=== PATIENT | male | born 1985 | race Caucasian/White ===

== ENCOUNTER → 2017-02-16 | Outpatient (REF) | payer OTHER ==
[2017-02-16 13:32] LABS: % NORMAL FORMS 5 % (>=4); IMMOTILITY 61 %; NON PROGRESSIVE MOTILITY (c) 12 %; PROGRESSIVE MOTILITY (a) 27 % (>=32); TOTAL MOTILITY 39 % (>=40)
[2017-02-16 13:33] LABS: SPERM ABNORMAL FORMS WBC'S NOTED; SPERM# 45.4 M/Ejac (>=39); TOTAL FUNCTIONAL 1.5 M/Ejac.; TOTAL PROGRESSIVE SPERM 12.2 M/Ejac.
== END ==
LOC: M LAB REF 13:03
PROVIDERS: ATTEND Student in an Organized Health Care Education/Training Program
DX: N46.8 Other male infertility (principal)

== ENCOUNTER 2017-08-26 07:35 | Emergency (ER) | payer OTHER ==
[2017-08-26 08:29] LABS: BASO % 0.3 % (0.0-1.0); EOS % 0.5 % (0.0-3.0); HEMATOCRIT 41.5 % (42.0-52.0); HEMOGLOBIN 14.5 g/dl (14.0-18.0); IMMATURE GRANULOCYTE % 0.3 % (0-3.0); LYMPH # 1.4 10^3/uL (1.5-4.5); LYMPH % 23.8 % (24.0-44.0); MEAN CORPUSCULAR HEMOGLOBIN 31.8 pg (27.0-33.0); MEAN CORPUSCULAR HGB CONC 34.9 g/dl (32.0-36.5); MONO # 0.5 10^3/uL (0.0-0.8); MONO % 8.7 % (0.0-5.0); NEUTROPHILS % 66.4 % (36.0-66.0); PLATELET COUNT, AUTOMATED 222 10^3/uL (150-450); RED BLOOD COUNT 4.56 10^6/uL (4.30-6.10); RED CELL DISTRIBUTION WIDTH 12.2 % (11.5-14.5)
[2017-08-26 08:41] LABS: ANION GAP 3 MEQ/L (8-16); BLOOD UREA NITROGEN 18 MG/DL (7-18); CALCIUM LEVEL 8.7 MG/DL (8.5-10.1); CARBON DIOXIDE LEVEL 29 MEQ/L (21-32); CHLORIDE LEVEL 109 MEQ/L (98-107); CPK CREATINE PHOSPHOKINASE 646 U/L (39-308); CREATININE FOR GFR 1.05 MG/DL (0.70-1.30); GLOMERULAR FILTRATION RATE > 60.0 (>60); GLUCOSE, FASTING 93 MG/DL (70-100); POTASSIUM SERUM 3.9 MEQ/L (3.5-5.1); SODIUM LEVEL 141 MEQ/L (136-145); TROPONIN I < 0.02 NG/ML (< 0.10)
[2017-08-26 08:47] LABS: MB/CK RELATIVE INDEX 0.15 (< OR =4)
[2017-08-26 08:52] LABS: D-DIMER QUANT < 270.0 ng/ml (<500)
[2017-08-26] MEDS ORDERED: ISOVUE-370 76% 100ML VIAL (Q9967) As Ordered (09:34)
== END 2017-08-26 10:37 | disposition home or self-care (01) ==
LOC: M ED 07:35
DX: R07.89 Other chest pain (principal)
CPT/HCPCS: Q9967